=== PATIENT | female | born 1935 | race Caucasian/White ===

== ENCOUNTER 2019-10-29 15:42 | Emergency (ER) | payer MEDICARE, OTHER ==
--- NOTE | 2019-10-29 15:50 | ED ---
Lower Extremity - HPI Summary HPI Summary: 84 y/o F with hx cancer, diabetes, hypertension, hypothyroidism brought in by EMS from [facility] for evaluation for left lower extremity redness and swelling. It started as a scratch. She has no pain. She denies shortness of breath, fever, cough. She was able to ambulate a few days ago but not anymore now. The [facility] called the ambulance today. Patient receives chemotherapy. Her next treatment is 11/05. Patient is baseline confused per [facility] records. Her baseline creatinine in Apr 2019 was 1.4. - History of Current Complaint Stated Complaint: POSS DVT PER EMS Time Seen by Provider: 10/29/19 15:47 Hx Obtained From: Patient, Medical Records Onset/Duration: Still Present Severity Currently: None Pain Intensity: 0 Pain Scale Used: 0-10 Numeric Timing: Constant Associated Signs And Symptoms: Positive: Negative - shortness of breath, fever, cough Aggravating Factor(s): Nothing Alleviating Factor(s): Nothing - Allergies/Home Medications Allergies/Adverse Reactions: Allergies Allergy/AdvReac Type Severity Reaction Status Date / Time Quinolones Allergy See Comment Verified 10/29/19 17:49 Home Medications: Home Medications Acetaminophen TAB* [Tylenol TAB*] 650 mg PO Q4H PRN 10/29/19 [History Confirmed 10/29/19] Al Hydrox/Mg Hydrox/Simet LIQ* [Maalox Plus*] 15 ml PO Q4H PRN 10/29/19 [ History Confirmed 10/29/19] Aspirin 81 mg CHEW TAB* [Aspirin Low Dose TAB*] 81 mg PO DAILY 10/29/19 [ History Confirmed 10/29/19] Atorvastatin* [Lipitor*] 20 mg PO BEDTIME 10/29/19 [History Confirmed 10/29/19] Bismuth Subsalicylate [Kaopectate] 15 ml PO Q4HR PRN 10/29/19 [History Confirmed 10/29/19] Cephalexin CAP* [Keflex CAP*] 250 mg PO TID 7 Days #21 cap 10/29/19 [Rx] Dextran/Hypromellose/Glycerin [Genteal Tears Liquid Drop 0.1-0.2-0.3 %] 1 drop RIGHT EYE QPM 10/29/19 [History Confirmed 10/29/19] Famotidine TAB 40 MG(NF) [Pepcid TAB 40 MG(NF)] 40 mg PO DAILY 10/29/19 [ History Confirmed 10/29/19] Furosemide TAB* [Lasix TAB*] 40 mg PO DAILY 10/29/19 [History Confirmed 10/29/19 ] Ibuprofen TAB* [Motrin TAB* 600 MG] 600 mg PO Q6H PRN 10/29/19 [History Confirmed 10/29/19] Ipratropium/Albuterol Sulfate [Iprat-Albut 0.5-3(2.5) mg/3 ml] 3 ml INH QID PRN 10/29/19 [History Confirmed 10/29/19] Levothyroxine TAB* [Synthroid TAB*] 175 mcg PO DAILY 10/29/19 [History Confirmed 10/29/19] Loperamide HCl [Imodium A-D] 2 mg PO Q2HR PRN 10/29/19 [History Confirmed ] LoraTADine TAB(NF) [Claritin 10 MG TAB(NF)] 10 mg PO DAILY 10/29/19 [History Confirmed 10/29/19] Magnesium Hydroxide LIQ* [Milk of Magnesia LIQ*] 30 ml PO DAILY PRN 10/29/19 [ History Confirmed 10/29/19] Magnesium Oxide TAB* [MagOx 400 TAB*] 400 mg PO DAILY 10/29/19 [History Confirmed 10/29/19] Megestrol TAB* [Megace TAB*] 40 mg PO BID 10/29/19 [History Confirmed 10/29/19] Metoprolol Tartrate TAB* [Lopressor TAB*] 50 mg PO BID 10/29/19 [History Confirmed 10/29/19] Multivit-Min/Folic AC/Caffeine [One-A-Day [employer]] 1 tab.chew PO DAILY 10/29/19 [History Confirmed 10/29/19] Nystatin TOP POWDER* 1 applic TOPICAL BID PRN 10/29/19 [History Confirmed ] Ondansetron TAB* [Zofran 4 MG Tab*] 8 mg PO Q8HR PRN 10/29/19 [History Confirmed 10/29/19] PARoxetine HCL TAB* [Paxil TAB*] 20 mg PO DAILY 10/29/19 [History Confirmed 08/18] Spironolactone TAB* [Aldactone TAB*] 25 mg PO DAILY 10/29/19 [History Confirmed 10/29/19] amLODIPine TAB* [Norvasc 5 mg TAB*] 5 mg PO DAILY 10/29/19 [History Confirmed ] guaiFENesin 100 mg/5 ml LIQ [Robitussin 100 mg/5ml LIQ] 10 ml PO Q4H PRN [History Confirmed 10/29/19] traZODone TAB* [Desyrel TAB*] 50 mg PO BEDTIME 10/29/19 [History Confirmed 10/28] PMH/Surg Hx/FS Hx/Imm Hx Endocrine/Hematology History: Reports: Hx Diabetes, Hx Thyroid Disease - HYPO Cardiovascular History: Reports: Hx Hypertension Neurological History: Reports: Other Neuro Impairments/Disorders - baseline confusion per [facility] records - Cancer History Hx Chemotherapy: Yes - Surgical History Surgery Procedure, Year, and Place: LEVEL 5 CAVEAT Surgical hx is limited secondary to baseline confusion - Family History Family History: LEVEL 5 CAVEAT FHx is limited secondary to baseline confusion - Social History Alcohol Use: None Substance Use Type: Reports: None Hx Tobacco Use: Yes Smoking Status (MU): Former Smoker Review of Systems Negative: Fever Negative: Shortness Of Breath, Cough Positive: Other - left lower extremity swelling Positive: Other - left lower extremity redness All Other Systems Reviewed And Are Negative: Yes Physical Exam - Summary Physical Exam Summary: Constitutional: Elderly, Alert. (-) Distressed Skin: Warm, Dry; circumferential erythema to the mid calf of left leg HENT: Normocephalic; Atraumatic Eyes: Conjunctiva normal Neck: Musculoskeletal ROM normal neck. (-) JVD, (-) Stridor, (-) Nuchal rigidity Cardio: Rhythm regular, rate normal, Heart sounds normal; Intact distal pulses; Radial pulses are 2+ and symmetric. (-) Murmur Pulmonary/Chest wall: Effort normal. (-) Respiratory distress, (-) Wheezes, (-) Rales Abd: Soft, (-) tenderness, (-) Distension, (-) Guarding, (-) Rebound Musculoskeletal: Lymphedema of BLE, 3+ edema to left foot and left calf Lymph: (-) Cervical adenopathy Neuro: Alert, Oriented x2 Psych: Mood and affect Normal Triage Information Reviewed: Yes Vital Signs Reviewed: Yes Procedures - Sedation Patient Received Moderate/Deep Sedation with Procedure: No Diagnostics - Laboratory Result Diagrams: 10/29/19 16:03 10/29/19 16:03 Lab Statement: Any lab studies that have been ordered have been reviewed, and results considered in the medical decision making process. - Radiology CXR Radiology Interpretation Completed By: Radiologist - IMPRESSION: NO ACTIVE CARDIOPULMONARY DISEASE IS NOTED. ED physician has reviewed this imaging report. - Ultrasound Venous doppler study Ultrasound Interpretation Completed By: Radiologist - IMPRESSION: NO EVIDENCE OF DEEP VENOUS THROMBOSIS IS IDENTIFIED. ED physician has reviewed this imaging report. Lower Extremity Course/Dx - Course Course Of Treatment: 84 y/o F w hx cancer on chemo, DM, HTN p/w LLE swelling and erythema. - erythema to mid calf w pitting edema. no fevers. DVT US negative. Baseline Cr 1.4 per [place] records, now 2. Given 500 cc IVF. Dosed keflex renally for cellulitis. Had episode of desaturation when sleeping, suspect DIOGO. 95% on RA when awake, CXR negative. Denies SOB. Can discharge to [place] - Diagnoses Provider Diagnoses: Cellulitis, Edema of left lower extremity, CKD (chronic kidney disease) Discharge ED - Sign-Out/Discharge Documenting (check all that apply): Patient Departure - Discharge Plan Condition: Stable Disposition: HOME Prescriptions: Cephalexin CAP* [Keflex CAP*] 250 mg PO TID 7 Days #21 cap Patient Education Materials: Chronic Kidney Disease (ED), Cellulitis (ED) Referrals: Miguel A Tsai MD [Primary Care Provider] - Additional Instructions: You were seen in the emergency department for leg swelling. Your ultrasound did not show any blood clots. Please take Keflex 250 mg 3 times a day for 7 days. Your creatinine today was 2.0, which is higher than your baseline. Please have this addressed w your doctor. Please follow up with your primary care doctor in next 2-3 days and return to emergency department for worsening or concerning symptoms. It was a pleasure taking care of you today. - Billing Disposition and Condition Condition: STABLE Disposition: Home - Attestation Statements Document Initiated by Scribe: Yes Documenting Scribe: Nia Tierney Provider For Whom Scribe is Documenting (Include Credential): Priscilla Holbrook MD Scribe Attestation: INia, scribed for Priscilla Holbrook MD on 10/29/19 at 2020. Scribe Documentation Reviewed: Yes Provider Attestation: The documentation as recorded by the scribe, Nia Tierney accurately reflects the service I personally performed and the decisions made by me, Priscilla Holbrook MD Status of Scribe Document: Viewed
[2019-10-29 16:26] LABS: INR 1.16 (0.82-1.09)
[2019-10-29 16:31] LABS: Albumin 3.5 g/dL (3.2-5.2); Albumin/Globulin Ratio 1.1 (1-3); BUN/Creatinine Ratio 16.3 (8-20); Calcium 8.9 mg/dL (8.6-10.3); EGFR African American 28.5 (>60); EGFR Non-African American 23.5 (>60); Globulin 3.2 g/dL (2-4); Potassium 4.8 mmol/L (3.5-5.0); Total Bilirubin 0.5 mg/dL (0.2-1.0); Total Protein 6.7 g/dL (6.4-8.9)
[2019-10-29 16:58] LABS: ABS Eosinophils 0.1 10^3/ul (0-0.6); ABS Lymphocytes 1.1 10^3/ul (1.0-4.8); ABS Monocytes 0.8 10^3/ul (0-0.8); ABS Neutrophils 3.8 10^3/ul (1.5-7.7); ABS Nucleated RBC 0.2 10^3/ul; Eosinophil % 1.6 %; Hematocrit 27 % (35-47); Hemoglobin 8.9 g/dL (12.0-16.0); Lymphocyte % 18.8 %; Mean Corpuscular HGB Conc 33 g/dL (31-36); Mean Corpuscular Hemoglobin 36 pg (27-31); Mean Corpuscular Volume 108 fL (80-97); Mean Platelet Volume 7.6 fL (7.4-10.4); Nucleated Red Blood Cells % 3.1; Platelet Count 222 10^3/uL (150-450); Red Blood Count 2.47 10^6 /uL (3.70-4.87); Red Cell Distribution Width 23 % (10-15); White Blood Count 5.9 10^3/uL (3.5-10.8)
[2019-10-29 17:00] LABS: Polychromasia 2+
[2019-10-29] MEDS ORDERED: NS 0.9% 500 ML* 500 ML IV ONE (17:47)
[2019-10-29] MEDS ORDERED: Cephalexin CAP* 250 MG PO ONE ×2 (17:50→17:51)
[2019-10-29 19:09] VITALS: BP 98/76
== END 2019-10-29 20:30 | disposition home or self-care (01) ==
LOC: ED 15:42
DX: L03.90 Cellulitis, unspecified (principal); R60.0 Localized edema; E11.22 Type 2 diabetes mellitus with diabetic chronic kidney disease; I12.9 Hypertensive chronic kidney disease with stage 1 through stage 4 chronic kidney disease, or unspecified chronic kidney disease; N18.9 Chronic kidney disease, unspecified; E03.9 Hypothyroidism, unspecified; Z88.8 Allergy status to other drugs, medicaments and biological substances; Z79.82 Long term (current) use of aspirin; Z79.899 Other long term (current) drug therapy; Z79.890 Hormone replacement therapy; Z87.891 Personal history of nicotine dependence
CPT/HCPCS: 36415; 71045; 80053; 85025; 85610; 96360; 99283; A9270-GY